=== PATIENT | male | born 1960 | race Two or more races ===

== ENCOUNTER 2021-07-02 15:52 | Emergency (ER) | payer MEDICAID ==
[~2021-07-02] VITALS: Ht 177.8 cm; Wt 83.9 kg
[2021-07-02 15:58] VITALS: BP 116/81
--- NOTE | 2021-07-02 16:10 | NUR ---
AT BEDSIDE FOR EVAL.
[2021-07-02] MEDS ORDERED: IBUPROFEN 600 MG TABLET ONE (16:17)
[2021-07-02] MEDS ORDERED: IBUPROFEN 600 MG TABLET PO ONE (16:30)
[2021-07-02] MEDS ORDERED: IBUP-1957 PO (17:22)
[2021-07-02] MEDS ORDERED: HYDR-3972 PO (17:22)
--- NOTE | 2021-07-02 17:32 | NUR ---
LANDON FOSTER AT BEDSIDE FOR SPLINTING.
--- NOTE | 2021-07-02 17:57 | NUR ---
Patient discharged to home in stable condition. Written and verbal after care instructions given. Patient verbalizes understanding of instruction.
== END 2021-07-02 17:57 | disposition home or self-care (01) ==
LOC: ER 15:57
DX: S52.292A Other fracture of shaft of left ulna, initial encounter for closed fracture (principal); Z60.2 Problems related to living alone; W01.198A Fall on same level from slipping, tripping and stumbling with subsequent striking against other object, initial encounter; Y93.89 Activity, other specified; Y92.59 Other trade areas as the place of occurrence of the external cause; Y99.8 Other external cause status
CPT/HCPCS: 73090-TC